=== PATIENT | male | born 2000 | race Two or more races ===

== ENCOUNTER 2020-05-19 23:03 | Emergency (ER) | payer OTHER ==
[~2020-05-19] VITALS: Ht 177.8 cm; Wt 73.0 kg
[2020-05-19 23:06] VITALS: BP 146/73
== END 2020-05-20 01:14 | disposition home or self-care (01) ==
LOC: ED 23:54
DX: S43.101A Unspecified dislocation of right acromioclavicular joint, initial encounter (principal); X50.0XXA Overexertion from strenuous movement or load, initial encounter; Y93.89 Activity, other specified; Y92.009 Unspecified place in unspecified non-institutional (private) residence as the place of occurrence of the external cause; Y99.8 Other external cause status
CPT/HCPCS: 99283